=== PATIENT | female | born 1970 | race Caucasian/White ===

== ENCOUNTER 2016-12-04 14:03 | Emergency (ER) | payer SELFPAY ==
[~2016-12-04] VITALS: Ht 165.1 cm; Wt 94.0 kg
[~2016-12-04 14:03] MED LIST: GABA300C PO; IBUP-727 PO; VIC PO
[2016-12-04 14:06] VITALS: Ht 165.1 cm; Wt 94.0 kg
== END 2016-12-04 17:54 | disposition left against medical advice (07) ==
LOC: E/R 14:03
DX: Z53.21 Procedure and treatment not carried out due to patient leaving prior to being seen by health care provider (principal)